=== PATIENT | female | born 1990 | race Caucasian/White ===

== ENCOUNTER 2019-03-23 19:36 | Emergency (ER) | payer MEDICAID ==
[~2019-03-23] VITALS: Ht 162.6 cm; Wt 63.5 kg
[2019-03-23 19:46] VITALS: BP_SYST 148
--- NOTE | 2019-03-23 19:48 | NUR ---
Patient to ER bed 4 for evaluation. Side rails up.
--- NOTE | 2019-03-23 19:50 | NUR ---
Pt C/O laceration to the left index finger. Pt states she was slicing bread with a serrated knife and accidently cut her finger. Laceration is approximately 0.5 inches and minimal bleeding noted. Pain is a 7/10 denies any other symptoms at this time. Will continue to monitor.
--- NOTE | 2019-03-23 19:54 | NUR ---
Laceration cleansed with normal saline. Site measures approximately 0.5 inches. 4x4 guaze dressing applied. Tetanus vaccination current 2015.
[2019-03-23] MEDS ORDERED: BACITRACIN 1 GM OINT TP ONE (20:00)
[2019-03-23] MEDS ORDERED: LIDOCAINE 1% 10 MG/ML, 20 ML MDV INJ ONE (20:00)
[2019-03-23] MEDS ORDERED: IBUPROFEN 600 MG TABLET PO ONE (20:00)
--- NOTE | 2019-03-23 20:10 | NUR ---
PHOTOGRAPHIC PLATE MAKER at bedside for examination
--- NOTE | 2019-03-23 20:25 | NUR ---
Yumi Quintero [employer]OR[employer] CLERK at bedside for proceedure
--- NOTE | 2019-03-23 21:00 | NUR ---
Patient has a 0.5 in laceration to Lt index finger. Yumi Quintero Np applied sutures using sterile technique. Edges well approximated. Site cleansed with iodine and NS. Dressing of gauze applied to site. No bleeding noted. Pt tolerated well.
[2019-03-23 21:15] VITALS: BP_SYST 148
--- NOTE | 2019-03-23 21:15 | NUR ---
Patient given written and verbal discharge instructions and verbalizes understanding. ER MD discussed with patient the results and treatment provided. Patient in stable condition. ID arm band removed. Rx of Motrin adn Bacitracin given. Patient educated on pain management and to follow up with PMD. Pain Scale 0/10. Opportunity for questions provided and answered. Medication side effect fact sheet provided.
== END 2019-03-23 21:15 | disposition home or self-care (01) ==
LOC: SED 19:36
DX: S61.211A Laceration without foreign body of left index finger without damage to nail, initial encounter (principal); R03.0 Elevated blood-pressure reading, without diagnosis of hypertension; Z88.2 Allergy status to sulfonamides; Z88.8 Allergy status to other drugs, medicaments and biological substances; W26.8XXA Contact with other sharp object(s), not elsewhere classified, initial encounter; Y93.89 Activity, other specified; Y92.89 Other specified places as the place of occurrence of the external cause; Y99.8 Other external cause status
CPT/HCPCS: 12001; 99283; J2001

== ENCOUNTER 2019-04-18 15:15 | Emergency (ER) | payer MEDICAID ==
[~2019-04-18] VITALS: Ht 162.6 cm; Wt 63.5 kg
[2019-04-18 15:46] VITALS: BP_SYST 129
[2019-04-18] MEDS ORDERED: IBUPROFEN 600 MG TABLET PO ONE (19:30)
[2019-04-18 19:40] VITALS: BP_SYST 129
== END 2019-04-18 19:40 | disposition home or self-care (01) ==
LOC: SED 15:15
DX: M79.661 Pain in right lower leg (principal); R03.0 Elevated blood-pressure reading, without diagnosis of hypertension; Z88.2 Allergy status to sulfonamides; Z88.8 Allergy status to other drugs, medicaments and biological substances
CPT/HCPCS: 93971; 99284